=== PATIENT | female | born 1955 | race American Indian/Alaskan Native ===

== ENCOUNTER 2017-09-23 12:15 | Day surgery (SDC) | payer OTHER ==
[~2017-09-23 12:15] MED LIST: NACL 0.9% 1000 ML 1,000 ML IV SCH
--- NOTE | 2017-09-23 15:00 | Anesthesia Consultation ---
Anesthesia Consult and Med Hx Date of service: 09/23/17 - Airway Anesthetic Teeth Evaluation: Good ROM Head & Neck: Adequate Mental/Hyoid Distance: Adequate Mallampati Class: Class I Intubation Access Assessment: Good - Pulmonary Exam CTA: Yes - Cardiac Exam Cardiac Exam: RRR - Pre-Operative Health Status ASA Pre-Surgery Classification: ASA2 Proposed Anesthetic Plan: MAC - Pulmonary Hx Sleep Apnea: Yes - Cardiovascular System Hx Hypertension: Yes
--- NOTE | 2017-09-23 15:01 | Anesthesia Day of Surgery ---
Anesthesia Day of Surgery - Day of Surgery Patient Examined: Yes Patient H&P Reviewed: Yes Patient is NPO: Yes
[2017-09-23] MEDS ORDERED: DIPRIVAN 10 MG/ML IV ONE ×2 (16:23)
[2017-09-23] MEDS ORDERED: WATER FOR IRRIG STERILE ONE (16:24)
[2017-09-23] MEDS ORDERED: WATER FOR IRRIG STERILE IR ONE (16:24)
--- NOTE | 2017-09-23 16:56 | Operative Report ---
Operative Report Operative Report: Date of procedure: 09/23/2017 Procedure: Colonoscopy with Endoscopic mucosal resection. H Attending physician: Kenney Jimenez MD Makeup Sales Consultant: Kenney Jimenez MD Indication: Patient is a 61-year-old female who presents for screening colonoscopy. She has a past history of colon polyps A colonoscopy serves to evaluate patient so that treatment may be directed based on the findings. Consent: Informed consent was obtained after advising the patient and family regarding nature of this procedure, its indications, potential benefits as well as possible complications including but not limited to bleeding perforation and adverse reaction to medication, infection as well as other cardiopulmonary complications. An informed written and verbal consent was then obtained after due opportunity was provided for questions and answers. Monitoring: Patient was monitored continuously with pulse oximetry and electrocardiographic recordings as well as blood pressure recordings. Vital signs remained stable throughout this procedure with no untoward events. Preoperative assessment: Patient was assessed immediately prior to this procedure for capacity to tolerate monitored anesthesia care and moderate sedation as well as general anesthesia. Patient's ASA classification is 2, Mallampati class is 2, Hyomental distance is 3. Instrument: Fujinon videocolonoscope. TestQuestn video endoscope. Multiple band ligator: Speedband SuperView Super 7 ([employer]) Medications: Propofol given intravenously in divided doses. For details please refer to anesthesia records. Description of procedure: Patient was placed in the left lateral decubitus position after achieving sedation, a digital rectal examination was performed following which the colonoscope was introduced into the anal verge and advanced to the cecum which was identified by the cecal valve, the appendiceal orifice, as well as by the cecal strap and direct transillumination. The colonoscope was subsequently withdrawn with careful inspection of all mucosal surfaces. Patient tolerated this procedure well and was subsequently taken to the recovery room. The following findings were noted. Findings: The patient had a small cauliflower-like violaceous polyp in the sigmoid colon. This was elevated with submucosal injection of saline and endoscopic mucosal resection was completed by snare electrocautery and the polyp retrieved. The rest of the colon was normal. On a retroflexed view at the anal verge, patient had prominent internal hemorrhoids. Impression: Sigmoid colon polyp status post endoscopic mucosal resection. Prominent friable Internal hemorrhoids. Plan: Follow-up pathology report High-fiber diet. Will likely benefit from hemorrhoidal band ligation in the near future
--- NOTE | 2017-09-23 16:57 | Discharge Summary ---
Short Stay Discharge Plan Activity: advance as tolerated Weight Bearing Status: Weight Bear as Tolerated Diet: regular Follow up with: SILVINO ORTIZ COACH [Other] - 7 Days
[2017-09-23 17:21] VITALS: BP 130/64
== END 2017-09-23 12:16 | disposition home or self-care (01) ==
LOC: GIO 12:15
PROVIDERS: ATTEND Internal Medicine Gastroenterology
DX: D37.4 Neoplasm of uncertain behavior of colon (principal); K64.8 Other hemorrhoids; G47.33 Obstructive sleep apnea (adult) (pediatric); I10 Essential (primary) hypertension; M13.869 Other specified arthritis, unspecified knee; M13.88 Other specified arthritis, other site; Z90.710 Acquired absence of both cervix and uterus; Z87.891 Personal history of nicotine dependence; Z86.010 Personal history of colon polyps; Z98.890 Other specified postprocedural states
CPT/HCPCS: 45381; 45385; 88305; J2704; J7030